=== PATIENT | female | born 1930 | race Caucasian/White ===

== ENCOUNTER 2017-10-30 07:30 | Inpatient (IN) | payer MEDICARE ==
[2017-10-30] MEDS: DILTIAZEM 25 MG INJ IV (08:22)
[2017-10-30] MEDS ORDERED: DILTIAZEM-D5W 125MG/125ML DRIP 125 ML IV (08:30)
[2017-10-30 08:45] LABS: ADD MAN DIFF? NO
[2017-10-30] MEDS: DILTIAZEM-D5W 125MG/125ML DRIP 125 ML IV (08:45)
[2017-10-30 08:47] LABS: BASOPHILS % 0.3 % (0.0-2.0); EOSINOPHILS # 0.2 10^3/ul (0.0-0.5); EOSINOPHILS % 2.9 % (0.0-7.0); HEMATOCRIT 34.8 % (37.0-47.0); LYMPHOCYTES # 1.6 10^3/ul (0.8-2.9); LYMPHOCYTES % 22.7 % (15.0-51.0); MEAN CORPUSCULAR HEMOGLOBIN 29.6 pg (29.0-33.0); MEAN CORPUSCULAR HGB CONC 31.6 g/dl (32.0-37.0); MEAN CORPUSCULAR VOLUME 93.8 fl (82.0-101.0); MEAN PLATELET VOLUME 9.6 fl (7.4-10.4); MONOCYTE # 0.7 10^3/ul (0.3-0.9); MONOCYTES % 10.5 % (0.0-11.0); NEUTROPHIL # 4.3 10^3/ul (1.6-7.5); PLATELET COUNT 214 10^3/UL (140-415); RED BLOOD COUNT 3.71 10^6/ul (4.20-5.40); RED CELL DISTRIBUTION WIDTH 15.1 % (11.5-14.5)
[2017-10-30 08:47] LABS: WHITE BLOOD COUNT 6.9 10^3/ul (4.8-10.8)
[2017-10-30] MEDS: DIATR MEGLU/DIATRIZOATE SODIUM 120 ML BTL (08:49)
[2017-10-30 09:05] LABS: ALANINE AMINOTRANSFERASE 38 IU/L (13-69); ALBUMIN 3.5 g/dl (3.3-4.9); ALBUMIN/GLOBULIN RATIO 1.52; ALKALINE PHOSPHATASE 91 IU/L (42-121); ANION GAP 12 (8-16); ASPARTATE AMINO TRANSFERASE 26 IU/L (15-46); BILIRUBIN,INDIRECT 0.3 mg/dl (0-1.1); BILIRUBIN,TOTAL 0.3 mg/dl (0.2-1.3); BLOOD UREA NITROGEN 21 mg/dl (7-20); CALCIUM 8.7 mg/dl (8.4-10.2); CARBON DIOXIDE 29 mmol/L (21-31); CHLORIDE 103 mmol/L (97-110); CREATININE 0.93 mg/dl (0.44-1.00); GLUCOSE 79 mg/dl (70-220); POTASSIUM 4.3 mmol/L (3.5-5.1); SODIUM 140 mmol/L (135-144); TOTAL PROTEIN 5.8 g/dl (6.1-8.1)
[2017-10-30 09:16] LABS: B-TYPE NATRIURETIC PEPTIDE 1950 PG/ML (0-450)
[2017-10-30 09:21] LABS: INR 0.95; PROTIME 12.8 Sec (11.9-14.9)
[2017-10-30 09:23] LABS: PARTIAL THROMBOPLASTIN TIME 40.7 Sec (25.0-35.0)
[2017-10-30 09:44] LABS: TROPONIN-I < 0.012 ng/ml (0.00-0.12)
[2017-10-30 11:24] LABS: FREE T4 (FREE THYROXINE) 3.79 ng/dl (0.85-1.93)
[2017-10-30 11:42] LABS: THYROID STIMULATING HORMONE < 0.015 MIU/L (0.465-4.680)
[2017-10-30] MEDS ORDERED: ACETAMINOPHEN 325 MG TAB PO ×2 (12:00→14:30)
[2017-10-30] MEDS ORDERED: ONDANSETRON 4 MG INJ IV ×2 (12:00→14:30)
[2017-10-30] MEDS: ENOXAPARIN 40 MG/0.4 ML SYG SC (14:30)
[2017-10-30] MEDS ORDERED: HYDROCODONE/APAP (5/325) TAB PO (14:30)
[2017-10-30] MEDS ORDERED: NACL 0.9% 3 ML SYG IV (14:30)
[2017-10-30] MEDS ORDERED: DOCUSATE SODIUM 100 MG CAP PO (14:30)
[2017-10-30] MEDS ORDERED: morphine 2 MG INJ IV (14:30)
[2017-10-30] MEDS ORDERED: MAGNESIUM HYDROXIDE 30ML CUP PO (14:30)
[2017-10-30] MEDS: LOSARTAN 50 MG TAB PO (15:00)
[2017-10-30] MEDS: HYDROCHLOROTHIAZIDE 25 MG TAB PO (15:00)
[2017-10-30 15:08] LABS: CREATINE KINASE 26 IU/L (23-200)
[2017-10-30 15:18] LABS: CK-MB 0.79 ng/ml (0.0-2.4)
[2017-10-30 15:27] LABS: TROPONIN-I < 0.012 ng/ml (0.00-0.12)
[2017-10-30] MEDS: PANTOPRAZOLE (EC) 40 MG TAB PO (18:33)
[2017-10-30 20:32] LABS: CREATINE KINASE 20 IU/L (23-200)
[2017-10-30 20:45] LABS: CK INDEX 2.8; CK-MB 0.55 ng/ml (0.0-2.4)
[2017-10-30 20:59] LABS: TROPONIN-I < 0.012 ng/ml (0.00-0.12)
[2017-10-30] MEDS: ATORVASTATIN 20 MG TAB PO (21:08)
[2017-10-30] MEDS: HYDROCORTISONE 5 MG TAB PO (21:08)
[2017-10-30] MEDS: METOPROLOL 50 MG TAB PO (21:09)
[2017-10-31] MEDS: PANTOPRAZOLE (EC) 40 MG TAB PO (06:00)
[2017-10-31] MEDS: LEVOTHYROXINE 100 MCG TAB PO (06:19)
[2017-10-31] MEDS ORDERED: PANTOPRAZOLE (EC) 40 MG TAB PO (07:05)
[2017-10-31 07:38] LABS: ADD MAN DIFF? NO
[2017-10-31 07:41] LABS: BASOPHILS % 0.3 % (0.0-2.0); EOSINOPHILS # 0.3 10^3/ul (0.0-0.5); EOSINOPHILS % 3.8 % (0.0-7.0); HEMATOCRIT 32.3 % (37.0-47.0); HEMOGLOBIN 10.2 g/dl (12.0-16.0); LYMPHOCYTES # 1.5 10^3/ul (0.8-2.9); LYMPHOCYTES % 21.2 % (15.0-51.0); MEAN CORPUSCULAR HEMOGLOBIN 29.7 pg (29.0-33.0); MEAN CORPUSCULAR HGB CONC 31.6 g/dl (32.0-37.0); MEAN CORPUSCULAR VOLUME 94.2 fl (82.0-101.0); MEAN PLATELET VOLUME 9.5 fl (7.4-10.4); MONOCYTE # 0.7 10^3/ul (0.3-0.9); MONOCYTES % 10.4 % (0.0-11.0); NEUTROPHIL # 4.5 10^3/ul (1.6-7.5); NEUTROPHILS % 63.9 % (39.0-77.0); PLATELET COUNT 203 10^3/UL (140-415); RED BLOOD COUNT 3.43 10^6/ul (4.20-5.40); RED CELL DISTRIBUTION WIDTH 14.9 % (11.5-14.5)
[2017-10-31 08:00] LABS: ANION GAP 10 (8-16); BLOOD UREA NITROGEN 19 mg/dl (7-20); CALCIUM 8.4 mg/dl (8.4-10.2); CARBON DIOXIDE 29 mmol/L (21-31); CHLORIDE 106 mmol/L (97-110); GLUCOSE 70 mg/dl (70-220); MAGNESIUM 2.3 mg/dl (1.7-2.5); POTASSIUM 3.9 mmol/L (3.5-5.1); SODIUM 141 mmol/L (135-144)
[2017-10-31] MEDS: METOPROLOL 50 MG TAB PO ×2 (08:41→20:47)
[2017-10-31] MEDS: HYDROCHLOROTHIAZIDE 25 MG TAB PO (08:41)
[2017-10-31] MEDS: HYDROCORTISONE 5 MG TAB PO ×2 (08:42→21:54)
[2017-10-31] MEDS: LOSARTAN 50 MG TAB PO (08:42)
[2017-10-31] MEDS ORDERED: NON-FORMULARY/PATIENT OWN MED (Losartan-Hydrochlorothiazide (Losartan-HCTZ) 1 TAB) PO (09:00)
[2017-10-31] MEDS: AMIODARONE 200 MG TAB PO ×2 (15:06→21:54)
[2017-10-31] MEDS: ATORVASTATIN 20 MG TAB PO (20:46)
[2017-11-01] MEDS: PANTOPRAZOLE (EC) 40 MG TAB PO (06:00)
[2017-11-01] MEDS: LEVOTHYROXINE 100 MCG TAB PO (06:18)
[2017-11-01] MEDS: AMIODARONE 200 MG TAB PO (08:28)
[2017-11-01] MEDS: METOPROLOL 50 MG TAB PO (08:28)
[2017-11-01] MEDS: HYDROCORTISONE 5 MG TAB PO (09:31)
[2017-11-01 15:16] LABS: ADD MAN DIFF? NO
[2017-11-01 15:20] LABS: BASOPHILS % 0.3 % (0.0-2.0); EOSINOPHILS # 0.1 10^3/ul (0.0-0.5); EOSINOPHILS % 1.2 % (0.0-7.0); HEMOGLOBIN 10.5 g/dl (12.0-16.0); LYMPHOCYTES # 0.8 10^3/ul (0.8-2.9); LYMPHOCYTES % 7.5 % (15.0-51.0); MEAN CORPUSCULAR HEMOGLOBIN 29.7 pg (29.0-33.0); MEAN CORPUSCULAR HGB CONC 31.8 g/dl (32.0-37.0); MEAN CORPUSCULAR VOLUME 93.2 fl (82.0-101.0); MEAN PLATELET VOLUME 9.7 fl (7.4-10.4); MONOCYTE # 0.8 10^3/ul (0.3-0.9); MONOCYTES % 7.8 % (0.0-11.0); NEUTROPHILS % 82.7 % (39.0-77.0); PLATELET COUNT 214 10^3/UL (140-415); RED BLOOD COUNT 3.54 10^6/ul (4.20-5.40); RED CELL DISTRIBUTION WIDTH 14.6 % (11.5-14.5)
[2017-11-01 15:20] LABS: WHITE BLOOD COUNT 10.8 10^3/ul (4.8-10.8)
[2017-11-01 15:55] LABS: FREE T3 3.44 pg/ml (2.77-5.27)
[2017-11-01 15:57] LABS: FREE T4 (FREE THYROXINE) 3.21 ng/dl (0.85-1.93)
[2017-11-01 16:22] LABS: ERYTHROCYTE SEDIMENTATION RATE 8 mm/Hr (0-30)
[2017-11-02] MEDS ORDERED: INFLUENZA VIRUS VACCINE 0.5 ML SYG IM* (09:00)
== END 2017-11-01 18:45 | disposition home or self-care (01) | DRG 309 ==
LOC: E/R 07:30 → MS3 11:41
DX: I48.0 Paroxysmal atrial fibrillation (principal); E23.0 Hypopituitarism; I10 Essential (primary) hypertension; E78.5 Hyperlipidemia, unspecified; E03.9 Hypothyroidism, unspecified; K21.9 Gastro-esophageal reflux disease without esophagitis; E05.80 Other thyrotoxicosis without thyrotoxic crisis or storm; T46.2X5A Adverse effect of other antidysrhythmic drugs, initial encounter; Y92.019 Unspecified place in single-family (private) house as the place of occurrence of the external cause; Z95.0 Presence of cardiac pacemaker
CPT/HCPCS: 36415; 71045; 80048; 80053; 82550; 82553; 83735; 83880; 84100; 84439; 84443; 84481; 84484; 85025; 85610; 85651; 85730; 93005; 96365; 96366; 96375; 99291-25

== ENCOUNTER 2018-06-17 23:00 | Inpatient (IN) | payer MEDICARE, BC ==
[2018-06-17 23:41] LABS: ADD MAN DIFF? NO
[2018-06-17 23:49] LABS: WHITE BLOOD COUNT 8.1 10^3/ul (4.8-10.8)
[2018-06-17 23:49] LABS: BASOPHILS % 0.4 % (0.0-2.0); EOSINOPHILS # 0.2 10^3/ul (0.0-0.5); EOSINOPHILS % 2.3 % (0.0-7.0); HEMATOCRIT 40.2 % (37.0-47.0); HEMOGLOBIN 12.7 g/dl (12.0-16.0); LYMPHOCYTES # 1.4 10^3/ul (0.8-2.9); LYMPHOCYTES % 17.7 % (15.0-51.0); MEAN CORPUSCULAR HEMOGLOBIN 28.9 pg (29.0-33.0); MEAN CORPUSCULAR HGB CONC 31.6 g/dl (32.0-37.0); MEAN CORPUSCULAR VOLUME 91.6 fl (82.0-101.0); MEAN PLATELET VOLUME 10.4 fl (7.4-10.4); MONOCYTE # 0.9 10^3/ul (0.3-0.9); MONOCYTES % 11.6 % (0.0-11.0); NEUTROPHIL # 5.5 10^3/ul (1.6-7.5); NEUTROPHILS % 67.6 % (39.0-77.0); PLATELET COUNT 168 10^3/UL (140-415); RED BLOOD COUNT 4.39 10^6/ul (4.20-5.40); RED CELL DISTRIBUTION WIDTH 15.8 % (11.5-14.5)
[2018-06-18 00:07] LABS: PROTIME 12.2 Sec (11.9-14.9)
[2018-06-18 00:08] LABS: PARTIAL THROMBOPLASTIN TIME 39.9 Sec (25.0-35.0)
[2018-06-18 00:14] LABS: ANION GAP 8 (8-16); BLOOD UREA NITROGEN 28 mg/dl (7-20); CALCIUM 8.9 mg/dl (8.4-10.2); CARBON DIOXIDE 30 mmol/L (21-31); CHLORIDE 105 mmol/L (97-110); CREATININE 0.92 mg/dl (0.44-1.00); GLUCOSE 111 mg/dl (70-220); MAGNESIUM 2.4 mg/dl (1.7-2.5); POTASSIUM 4.3 mmol/L (3.5-5.1); SODIUM 139 mmol/L (135-144)
[2018-06-18 00:24] LABS: B-TYPE NATRIURETIC PEPTIDE 1520 PG/ML (0-450)
[2018-06-18 00:29] LABS: TROPONIN-I < 0.012 ng/ml (0.000-0.120)
[2018-06-18 00:47] LABS: THYROID STIMULATING HORMONE < 0.015 MIU/L (0.465-4.680)
[2018-06-18] MEDS ORDERED: BISACODYL (EC) 5 MG TAB PO (03:00)
[2018-06-18] MEDS ORDERED: DOCUSATE SODIUM 100 MG CAP PO (03:00)
[2018-06-18] MEDS ORDERED: ONDANSETRON 4 MG INJ IV (03:00)
[2018-06-18] MEDS ORDERED: morphine 2 MG INJ IV (03:00)
[2018-06-18] MEDS ORDERED: DILTIAZEM 25 MG INJ IV (03:00)
[2018-06-18] MEDS ORDERED: NACL 0.9% 3 ML SYG IV (03:00)
[2018-06-18] MEDS: DILTIAZEM 25 MG INJ IV (03:26)
[2018-06-18 05:39] LABS: FREE T3 3.26 pg/ml (2.77-5.27)
[2018-06-18 05:40] LABS: FREE T4 (FREE THYROXINE) 1.81 ng/dl (0.85-1.93)
[2018-06-18] MEDS: PANTOPRAZOLE (EC) 40 MG TAB PO (06:33)
[2018-06-18] MEDS ORDERED: HYDROCORTISONE 5 MG TAB PO (09:00)
[2018-06-18] MEDS: METOPROLOL 50 MG TAB PO ×2 (09:39→21:35)
[2018-06-18] MEDS: HYDROCORTISONE 20 MG TAB PO (09:39)
[2018-06-18] MEDS: BETA CAROTENE/VIT C/E/MIN TAB PO (09:39)
[2018-06-18] MEDS: L ACIDOPHIL/B LACTIS/B LONGUM CAPSULE PO (09:39)
[2018-06-18] MEDS: ASPIRIN 81 MG TAB PO (11:47)
[2018-06-18] MEDS: DILTIAZEM (CD) 120 MG CAP PO (11:48)
[2018-06-18] MEDS: ACETAMINOPHEN 325 MG TAB PO (19:44)
[2018-06-18] MEDS: ATORVASTATIN 20 MG TAB PO (21:32)
[2018-06-18] MEDS: HYDROCORTISONE 5 MG TAB PO (21:32)
[2018-06-19] MEDS: LEVOTHYROXINE 100 MCG TAB PO (06:33)
[2018-06-19] MEDS: PANTOPRAZOLE (EC) 40 MG TAB PO (06:33)
[2018-06-19 06:42] LABS: ADD MAN DIFF? NO
[2018-06-19 06:43] LABS: WHITE BLOOD COUNT 9.1 10^3/ul (4.8-10.8)
[2018-06-19 06:43] LABS: BASOPHILS % 0.2 % (0.0-2.0); EOSINOPHILS # 0.3 10^3/ul (0.0-0.5); EOSINOPHILS % 3.2 % (0.0-7.0); HEMATOCRIT 41.2 % (37.0-47.0); HEMOGLOBIN 12.8 g/dl (12.0-16.0); LYMPHOCYTES # 1.6 10^3/ul (0.8-2.9); LYMPHOCYTES % 17.1 % (15.0-51.0); MEAN CORPUSCULAR HEMOGLOBIN 28.6 pg (29.0-33.0); MEAN CORPUSCULAR HGB CONC 31.1 g/dl (32.0-37.0); MEAN CORPUSCULAR VOLUME 92.2 fl (82.0-101.0); MEAN PLATELET VOLUME 9.5 fl (7.4-10.4); MONOCYTE # 0.9 10^3/ul (0.3-0.9); MONOCYTES % 10.1 % (0.0-11.0); NEUTROPHIL # 6.3 10^3/ul (1.6-7.5); PLATELET COUNT 161 10^3/UL (140-415); RED BLOOD COUNT 4.47 10^6/ul (4.20-5.40); RED CELL DISTRIBUTION WIDTH 15.9 % (11.5-14.5)
[2018-06-19 07:08] LABS: HEMOGLOBIN A1C 6.2 % (0-5.9)
[2018-06-19 07:16] LABS: ALANINE AMINOTRANSFERASE 38 IU/L (13-69); ALBUMIN 3.2 g/dl (3.3-4.9); ALBUMIN/GLOBULIN RATIO 1.14; ALKALINE PHOSPHATASE 71 IU/L (42-121); ANION GAP 8 (8-16); ASPARTATE AMINO TRANSFERASE 29 IU/L (15-46); BILIRUBIN,INDIRECT 0.5 mg/dl (0-1.1); BILIRUBIN,TOTAL 0.5 mg/dl (0.2-1.3); BLOOD UREA NITROGEN 23 mg/dl (7-20); CALCIUM 8.6 mg/dl (8.4-10.2); CARBON DIOXIDE 31 mmol/L (21-31); CHLORIDE 106 mmol/L (97-110); CHOL/HDL RATIO 2.1 RATIO; CHOLESTEROL 192 mg/dl (100-200); CREATININE 0.81 mg/dl (0.44-1.00); GLUCOSE 77 mg/dl (70-220); HDL CHOLESTEROL 88 mg/dl (33-92); LDL CHOLESTEROL,CALCULATED 84 mg/dl; POTASSIUM 4.4 mmol/L (3.5-5.1); SODIUM 141 mmol/L (135-144); TRIGLYCERIDES 99 mg/dl (0-149)
[2018-06-19] MEDS: HYDROCORTISONE 20 MG TAB PO (08:45)
[2018-06-19] MEDS: BETA CAROTENE/VIT C/E/MIN TAB PO (08:46)
[2018-06-19] MEDS: ASPIRIN 81 MG TAB PO (08:46)
[2018-06-19] MEDS: L ACIDOPHIL/B LACTIS/B LONGUM CAPSULE PO (08:46)
[2018-06-19] MEDS: METOPROLOL 50 MG TAB PO (08:46)
[2018-06-19] MEDS: DILTIAZEM (CD) 120 MG CAP PO (08:57)
[2018-06-19] MEDS: ACETAMINOPHEN 325 MG TAB PO (09:15)
== END 2018-06-19 12:05 | disposition home or self-care (01) | DRG 309 ==
LOC: E/R 23:00 → TEL 06-18 02:37
DX: I48.0 Paroxysmal atrial fibrillation (principal); E23.0 Hypopituitarism; E24.9 Cushing's syndrome, unspecified; E03.8 Other specified hypothyroidism; Z95.0 Presence of cardiac pacemaker; E66.9 Obesity, unspecified; Z68.30 Body mass index [BMI] 30.0-30.9, adult; I10 Essential (primary) hypertension; E78.5 Hyperlipidemia, unspecified
CPT/HCPCS: 36415; 71045; 80048; 80053; 80061; 82533; 83036; 83735; 83880; 84439; 84443; 84481; 84484; 85025; 85610; 85730; 93005; 93306; 99285-25; G0378